=== PATIENT | female | born 1960 | race Caucasian/White ===

== ENCOUNTER → 2017-09-05 | Outpatient (CLI) | payer BC, OTHER ==
[2017-09-03 09:09] VITALS: BP 93/59
[~2017-09-05] VITALS: Ht 170.2 cm; Wt 63.3 kg
[~2017-09-05] MED LIST: MEDROLDOSEPACK PO; NAPROXEN SODIU550 MG PO; PREMARIN30 GM TOP; PROGESTERONE100 MG PO; SUMATRIPTAN SUC50 MG PO
--- NOTE | ~2017-09-05 | HPC ---
[facility] [place] [address] PAIN MANAGEMENT CONSULTATION Name: GALILEO BRADSHAW Room #: REG SABINE Alex#: [id number] Admission: 09/05/17 Attend Phys: Trever Pandey DO Discharge: Date of : 60 Report #: [id number] THIS REPORT FOR: //name// CC: Alec Pandey The patient is a 57-year-old female, typically seen by Dr. Antonio Pandey, was last seen in the pain clinic 07/23/2017. The patient was given a single cervical epidural injection at that time. Returns to pain clinic today for a repeat injection. She notes she had 100% relief for 1 month with injection, pain began to recur. She ostensibly was to have a cervical injection with Dr. Antonio Pandey earlier in the week, but she was just prepping for a colonoscopy. Returns to pain clinic today noting pain in the left shoulder and arm, rates it a 9 on VAS, exacerbated with sleeping and with sitting. Actually some relief with yoga and medication, currently taking Naprosyn 500 mg daily. The patient rates the subjective pain score quite high at 9 on VAS. No history of osteo or rheumatoid arthritis. BMI is 21.9 kilograms per meter squared. Vital signs are stable. She is not on a blood thinner. Does not have hypertension, does not use chronic opiates. Cervical range of motion shows positive Lhermitte's with radiation to the right cervical side. ASSESSMENT: Symptomatic cervical radiculopathy. RECOMMENDATION: Cervical epidural injection under fluoroscopy today. Follow up with Dr. Antonio Pandey in 3-4 weeks for reevaluation. 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 This does correlate with the patient's clinical scenario. ASSESSMENT: Symptomatic cervical radiculopathy. PROCEDURE: Cervical epidural injection under fluoroscopy. PROCEDURE NOTE: After written and informed consent was obtained including risk of dural puncture, spinal cord trauma, paralysis and increased pain, the patient was taken to the fluoroscopy suite and placed in the prone position, with appropriate abdominal bolstering, neck was flexed, palms under the thighs. Skin was prepped with ChloraPrep. Sterile draping was applied. Skin wheal with 1% Xylocaine was raised. A 22-gauge 3-1/2 inch epidural Tuohy needle was placed via a midline approach at the C7-T1 interspace, advanced under biplanar fluoroscopy using continuous loss of resistance. With appropriate loss of resistance at the expected depth on lateral view, the glass loss of resistance [address] [address] PAIN MANAGEMENT CONSULTATION Name: AUGUSTINEGALILEOBECCA CLEMENS Room #: CARMEN Johnson#: [id number] Admission: 09/05/17 Attend Phys: Trever Pandey DO Discharge: Date of : 60 Report #: [id number] syringe was disconnected. A low volume extension tubing was connected to the needle and a 5 mL syringe. Negative aspiration for cerebrospinal fluid or blood was noted. A 1 mL of Omnipaque was injected which showed spread within the epidural space on biplanar fluoroscopy. This was followed with 80 mg of triamcinolone plus 1 mL of 1.5% preservative Xylocaine. Needle was withdrawn to the interspinous ligament, 0.5 mL of Xylocaine was used to flush the needle. The needle was then completely withdrawn. The area was cleansed. Band-Aid was applied. The patient was allowed to move off the procedure table and ambulated to the recovery room, monitored for an appropriate period of time, discharged in good and stable condition. <ELECTRONICALLY SIGNED> By: Trever Pandey DO 09/08/17 1026 [id number] Trever Pandey DO /nt
[2017-09-05 14:07] VITALS: BP 120/77
== END | disposition home or self-care (01) ==
LOC: PAIN 09-03 06:50
DX: M54.12 Radiculopathy, cervical region (principal)

== ENCOUNTER 2018-09-16 02:31 | Emergency (ER) | payer BC, OTHER ==
[~2018-09-16] VITALS: Ht 170.2 cm; Wt 60.3 kg
[2018-09-16 05:19] VITALS: BP 105/64
== END 2018-09-16 05:20 | disposition home or self-care (01) ==
LOC: ER 02:31
DX: S01.01XA Laceration without foreign body of scalp, initial encounter (principal); F10.129 Alcohol abuse with intoxication, unspecified; Z88.5 Allergy status to narcotic agent; W00.0XXA Fall on same level due to ice and snow, initial encounter; Y93.89 Activity, other specified; Y92.89 Other specified places as the place of occurrence of the external cause; Y99.8 Other external cause status

== ENCOUNTER → 2019-10-08 | Outpatient (CLI) | payer BC, OTHER | LOC: RAD 11:05 → CAT 11:05 | DX: Z12.31 Encounter for screening mammogram for malignant neoplasm of breast (principal); Z13.6 Encounter for screening for cardiovascular disorders; E78.00 Pure hypercholesterolemia, unspecified; I25.10 Atherosclerotic heart disease of native coronary artery without angina pectoris ==

== ENCOUNTER → 2020-08-14 | Outpatient (CLI) | payer BC, OTHER | LOC: LAB 11:10 | PROVIDERS: ATTEND Anesthesiology | DX: Z01.812 Encounter for preprocedural laboratory examination (principal); Z20.828 Contact with and (suspected) exposure to other viral communicable diseases ==